=== PATIENT | male | born 1985 | race Caucasian/White ===

== ENCOUNTER → 2020-01-05 | Outpatient (CLI) | payer OTHER | LOC: COL.RAD 07:47 | DX: S46.212A Strain of muscle, fascia and tendon of other parts of biceps, left arm, initial encounter (principal); S43.432A Superior glenoid labrum lesion of left shoulder, initial encounter; M19.012 Primary osteoarthritis, left shoulder; M89.312 Hypertrophy of bone, left shoulder | CPT/HCPCS: A9585; Q9967 ==

== ENCOUNTER → 2020-06-20 | Outpatient (CLI) | payer OTHER | LOC: EDSTATUS 15:50 → ZCOL.LAB 16:59 | DX: B34.9 Viral infection, unspecified (principal); Z20.828 Contact with and (suspected) exposure to other viral communicable diseases ==